=== PATIENT | female | born 1960 | race Caucasian/White ===

== ENCOUNTER → 2018-02-14 | Outpatient (CLI) | payer OTHER ==
--- NOTE | 2018-02-14 08:58 | RAD ---
DATE: 02/14/2018 EXAM: DIGITAL SCREEN BILAT W/CAD HISTORY: Routine screening. History of benign left breast biopsy 8 years ago. COMPARISON: None This study was interpreted with the benefit of Computerized Aided Detection (CAD). FINDINGS: Breast Density: DENSE The breast Parenchyma is dense, which could reduce the sensitivity of mammography. Breast parenchyma level density D.. The skin and nipples are within normal limits. Left upper outer breast biopsy clip noted. Benign-appearing scattered bilateral calcifications . There is a round mass measuring 4.2 mm in the outer right breast approximately 7.1 cm from the nipple best seen on cc view. IMPRESSION: Right outer breast mass most likely a cyst. However, ultrasound confirmation recommended. BI-RADS CATEGORY: 0 INCOMPLETE: NEED ADDITIONAL IMAGING EVAULATION AND/OR PRIOR MAMMOGRAMS FOR COMPARISON. Ultrasound of the right outer breast recommended. RECOMMENDED FOLLOW-UP: ADD ADDITIONAL IMAGING. Ultrasound of the right outer breast. PQRS compliance statement: Patient information was entered into a reminder system with a target due date for the next mammogram. Mammography is a sensitive method for finding small breast cancers, but it does not detect them all and is not a substitute for careful clinical examination. A negative mammogram does not negate a clinically suspicious finding and should not result in delay in biopsying a clinically suspicious abnormality. "Our facility is accredited by the [employer] Mammography [employer]."
== END | disposition home or self-care (01) ==
LOC: MAMMO 07:54
PROVIDERS: ATTEND Nurse Practitioner
DX: Z12.31 Encounter for screening mammogram for malignant neoplasm of breast (principal); N63.10 Unspecified lump in the right breast, unspecified quadrant
CPT/HCPCS: 77067

== ENCOUNTER → 2018-06-17 | Outpatient (CLI) | payer OTHER ==
--- NOTE | 2018-06-17 13:03 | RAD ---
Right breast ultrasound, 02/14/2018: History: Abnormal mammogram The recent screening mammograms demonstrated a small nodule in the posterolateral right breast on the cc view. Correlation with the oblique view suggests that it lies at approximately 9:00 location. Its visible margins are fairly smooth. Today's targeted ultrasound exam of the lateral right breast does not demonstrate this nodule. IMPRESSION: No sonographic correlate could be identified for the mammographically identified small right lateral breast nodule. Follow-up 3-D mammography in 4-6 months is suggested to evaluate stability. Breast MR would be a reasonable alternative. BI-RADS 3-probably benign findings
== END | disposition home or self-care (01) ==
LOC: US 11:55
PROVIDERS: ATTEND Family Medicine
DX: R92.8 Other abnormal and inconclusive findings on diagnostic imaging of breast (principal)
CPT/HCPCS: 76641

== ENCOUNTER → 2019-02-13 | Outpatient (CLI) | payer OTHER ==
--- NOTE | 2019-02-13 14:45 | RAD ---
DATE: 02/13/2019 EXAM: DIGITAL DIAGNOSTIC RT HISTORY: Follow-up breast nodule COMPARISON: 02/14/2018 This study was interpreted with the benefit of Computerized Aided Detection (CAD). Breast Density: DENSE The breast parenchyma is dense, which could reduce the sensitivity of mammography. Breast parenchyma level density D. FINDINGS: The right breast is extremely dense. There is a persistent small 4-5 mm nodule in the posterolateral aspect of the right breast, currently only seen on the cc view. It has shown no definite change in size. This nodule could not be delineated on the previous ultrasound exam. Considering the extreme density of this patient's breasts, additional imaging consisting of 3-D mammography or breast MRI is again suggested for optimal localization and characterization. No new right breast density is seen. Scattered microcalcifications are again noted with the distribution suggests a benign etiology. IMPRESSION: Persistent right breast nodule as described above. 3-D mammography is suggested for further evaluation. It has been a year since the patient's previous bilateral mammography and therefore the patient is also due for left mammography. BI-RADS CATEGORY: 0 INCOMPLETE: NEEDS ADDITIONAL IMAGING EVALUATION AND/OR PRIOR MAMMOGRAMS FOR COMPARISON. RECOMMENDED FOLLOW-UP: ADD ADDITIONAL IMAGING PQRS compliance statement: Patient information was entered into a reminder system with a target due date for the next mammogram. Mammography is a sensitive method for finding small breast cancers, but it does not detect them all and is not a substitute for careful clinical examination. A negative mammogram does not negate a clinically suspicious finding and should not result in delay in biopsying a clinically suspicious abnormality. "Our facility is accredited by the [employer] Mammography [employer]."
== END | disposition home or self-care (01) ==
LOC: MAMMO 13:58
PROVIDERS: ATTEND Nurse Practitioner Family
DX: N63.10 Unspecified lump in the right breast, unspecified quadrant (principal)
CPT/HCPCS: 77065

== ENCOUNTER 2020-08-06 11:12 | Emergency (ER) | payer SELFPAY ==
[~2020-08-06] VITALS: Ht 167.6 cm; Wt 52.3 kg
[2020-08-06] MEDS ORDERED: CLIN300C8 PO (11:45)
[2020-08-06] MEDS ORDERED: TRAM50TA PO (11:45)
--- NOTE | 2020-08-06 11:46 | PHYS DOC ---
Past History Past Medical History: Diabetes Additional Past Medical Histor: Hep-C Past Surgical History: , Tubal ligation Additional Past Surgical Histo: cyst removal Smoking: Non-smoker Alcohol Use: Occasionally Drug Use: None Adult General Chief Complaint Chief Complaint: LOWER EXT PAIN HPI HPI Patient is a 60-year-old female who presents to the emergency room complaining of foot redness and swelling. She states that this started yesterday. It is progressively gotten worse. She initially noticed a little bit of redness and swelling and now she is having pain with walking due to the swelling. She denies any streaking, fever, nausea, vomiting, trauma. She did break her calcaneus in that foot several months ago but it has been healing well. Review of Systems Review of Systems General: Denies fever, chills, sweats, fatigue Eyes: Denies drainage, blurred vision, eye redness HENT: Denies rhinorrhea, sore throat, earache Respiratory: Denies cough, shortness of breath, wheezing Cardiac: Denies edema, palpitations, chest pain GI: Denies abdominal pain, Nausea, vomiting MSK: Denies back pain, neck pain Skin: Denies jaundice. Reports rash Neuro: Denies headache, dizziness Psychiatric: Denies SI/HI Allergies Allergies Allergies Coded Allergies Type Severity Reaction Last Updated Verified No Known Drug Allergies 11/01/13 No Physical Exam Physical Exam General: Awake, alert, NAD. Well Nourished, well hydrated. Cooperative HEENT: Atraumatic, EOMI, PERRL, airway patent, moist oral mucosa Neck: Supple, trachea midline Respiratory: CTA bilaterally, normal effort, no wheezing/crackles CV: RRR, no murmur, cap refill <2 GI: Soft, nondistended, nontender, no masses MSK: No obvious deformities Skin: Warm, dry. Right foot: Lateral area of erythema that measures 6x8 cm with swelling and warmth. No blisters or drainage Neuro: A&O x3, speech NL, sensory and motor grossly intact, no focal deficits Psych: Normal affect, normal mood, not suicidal or homicidal Current Patient Data Vital Signs Vital Signs Date Time Temp Pulse Resp B/P (MAP) Pulse Ox O2 Delivery O2 Flow Rate FiO2 08/06/20 11:22 97.8 102 16 133/53 (79) 96 Room Air EKG EKG [] Radiology/Procedures Radiology/Procedures [] Course & Med Decision Making Course & Med Decision Making Pertinent Labs and Imaging studies reviewed. (See chart for details) Patient is a 60-year-old female who presents to the emergency room with pain and swelling in her foot. Patient appears to have cellulitis at this time. We will place her on clindamycin. I have discussed with her that she needs to return to the emergency room if she develops fevers, is unable to walk, develops blisters, or the infection gets worse. Patient's test results and vitals while in the ED were fully reviewed and discussed with the patient. Patient is stable and at this time does not need admission to the hospital. We have discussed strict return precautions and the importance of following up with their Primary Care Physician. Patient stated understanding and was given an opportunity to ask any questions. Patient is in agreement with plan. Dragon Disclaimer Dragon Disclaimer This electronic medical record was generated, in whole or in part, using a voice recognition dictation system. Departure Departure: Impression: Primary Impression: Cellulitis of foot Disposition: 01 HOME/RESIDENCE PRIOR TO ADM Condition: STABLE Referrals: TRACEY MITCHELL (PCP) Patient Instructions: Cellulitis Scripts Tramadol Hcl (TRAMADOL HCL) 50 Mg Tablet 50 MG PO PRN Q6HRS PRN for PAIN, #5 TAB Prov: KIKA CUELLAR MD 08/06/20 Clindamycin Hcl (CLINDAMYCIN HCL) 300 Mg Capsule 1 CAP PO TID for infx, #21 CAP Prov: KIKA CUELLAR MD 08/06/20 Justification of Admission: Justification of Admission: Justification of Admission Dx: N/A KIKA CUELLAR MD Aug 06, 2020 11:46
[2020-08-06 11:53] VITALS: BP 111/52
== END 2020-08-06 11:54 | disposition home or self-care (01) ==
LOC: ER 11:12
DX: L03.115 Cellulitis of right lower limb (principal); E11.9 Type 2 diabetes mellitus without complications
CPT/HCPCS: 99283

== ENCOUNTER → 2020-08-16 | Outpatient (CLI) | payer OTHER ==
[2020-08-06 11:53] VITALS: BP 111/52
[~2020-08-16] MED LIST: CLIN300C8 PO; TRAM50TA PO
--- NOTE | 2020-08-16 16:47 | RAD ---
Three-view left ankle study Clinical indications: History of calcaneus fracture. FINDINGS: There is flattening of Boehler's angle. This is due to a fracture of the body of the calcaneus. Cortical disruption is seen involving the posterior aspect and plantar aspect of the calcaneus. However, no radiolucent fracture line is seen. Therefore, the fracture may be healed. There is no previous study available for comparison. No lytic process is evident. The mortise ankle joint appears intact. Small accessory ossification center of the medial malleolus is seen which is well corticated. IMPRESSION: Fracture of the calcaneus which appears healed. Electronically signed by: Enrrique Nesbitt MD (08/16/2020 4:44 PM) [id number]
== END | disposition home or self-care (01) ==
LOC: DXRAD 15:14
PROVIDERS: ATTEND Nurse Practitioner Family
DX: S92.002A Unspecified fracture of left calcaneus, initial encounter for closed fracture (principal); X58.XXXA Exposure to other specified factors, initial encounter; Y93.89 Activity, other specified; Y92.89 Other specified places as the place of occurrence of the external cause; Y99.8 Other external cause status
CPT/HCPCS: 73610

== ENCOUNTER → 2021-02-06 | Outpatient (CLI) | payer OTHER ==
[~2021-02-06] MED LIST changes: -CLIN300C8 PO; +CLIN300C9 PO
--- NOTE | 2021-02-06 16:28 | RAD ---
Examination: Bilateral digital diagnostic mammogram INDICATION: 61-year-old woman due for mammographic screening presents for follow-up of a nodule in th e lateral posterior right breast seen on prior diagnostic breast imaging. She is overdue for follow-u p. There is a history of 2 benign left breast biopsies. COMPARISON: Right diagnostic mammogram of 02/13/2019, bilateral screening mammogram of 02/14/2018, and limited right breast ultrasound of 06/17/2018. TECHNIQUE: CC and MLO views of both breasts were obtained with 2-D technique and reviewed with comput er-aided detection. FINDINGS: The breasts are extremely dense. The previously recalled from screening nodule in the lateral posterior right breast is no longer appa rent in follow-up. There has been a slight interval decrease in overall breast tissue density. The left breast shows scattered punctate calcifications in the posterior upper outer quadrant left br east with a biopsy marker present near the skin surface. IMPRESSION: Benign findings on bilateral digital diagnostic mammogram. No evidence of malignancy. Recommend routine screening next due in one year in the absence of any clinical concerns. BI-RADS Category 2 Benign findings Patient entered into a reminder system with targeted due date for next mammogram. Electronically signed by: Ann Sparrow MD (02/06/2021 4:25 PM) [id number]
== END ==
LOC: MAMMO 13:52
PROVIDERS: ATTEND Nurse Practitioner Family
DX: R92.1 Mammographic calcification found on diagnostic imaging of breast (principal)
CPT/HCPCS: 77066

== ENCOUNTER → 2021-02-07 | Outpatient (CLI) | payer OTHER ==
--- NOTE | 2021-02-07 17:13 | RAD ---
Examination: CT chest without contrast HISTORY: History of smoking, history of COPD COMPARISON: None TECHNIQUE: Axial CT images of chest were performed without contrast. Coronal and sagittal reformats a re performed Exposure: One or more of the following individualized dose reduction techniques were utilized for thi s examination: 1. Automated exposure control 2. Adjustment of the mA and/or kV according to patient size 3. Use of iterative reconstruction technique FINDINGS: The visualized thyroid gland grossly appears unremarkable. The central airways are patent. Heart size grossly appears unremarkable. Aortic atherosclerosis. No radiologically significant mediastinal lymphadenopathy. Mild bilateral lung emphysematous changes. Scattered calcified granulomas identified in the bilateral lungs. Mild airspace opacities identified in the right middle lobe, left lingula and left lower lobe of the lung likely atelectasis or infiltrate. The visualized liver, spleen, adrenals grossly appears unremar kable. Mild degenerative changes thoracic spine. Impression: 1. Mild airspace opacities identified in the right middle lobe, left lingula and left lower lobe of the lung likely atelectasis or infiltrate. Follow-up to resolution. 2. Mild bilateral lung emphysematous changes. Electronically signed by: Shaheed Stacy MD (02/07/2021 5:10 PM) [id number]
== END ==
LOC: CT 11:26
PROVIDERS: ATTEND Nurse Practitioner Family
DX: J43.9 Emphysema, unspecified (principal); Z72.0 Tobacco use
CPT/HCPCS: 71250

== ENCOUNTER 2021-09-22 10:08 | Emergency (ER) | payer SELFPAY ==
[~2021-09-22] VITALS: Ht 167.6 cm; Wt 52.3 kg
[~2021-09-22 10:08] MED LIST changes: +CLIN-95 PO; -CLIN300C9 PO
[2021-09-22 10:19] VITALS: BP 107/35
[2021-09-22] MEDS ORDERED: CEPHALEXIN 250 MG CAPSULE PO ONE (10:30)
--- NOTE | 2021-09-22 10:35 | PHYS DOC ---
Past History Past Medical History: Diabetes Additional Past Medical Histor: Hep-C Past Surgical History: , Tubal ligation Additional Past Surgical Histo: cyst removal Smoking: Non-smoker Alcohol Use: Occasionally Drug Use: None General Adult EDM: Chief Complaint: FOOT INJURY PAIN HPI: HPI: This 61-year-old female who presents to the emergency department for right foot pain, swelling, redness and warmth. Patient reports that she attempted to hit a vein in her foot while injecting meth and she noticed the symptoms that started yesterday. She rates her pain 3 out of 10. She states it is worse with bearing weight. Patient denies any decreased sensation, fevers, nausea or vomiting, decreased range of motion. Review of Systems: Review of Systems: Constitutional: See HPI GI: See HPI Musculoskeletal: See HPI Integument: See HPI Neurologic: See HPI Allergies: Allergies: Allergies Coded Allergies Type Severity Reaction Last Updated Verified No Known Drug Allergies 11/01/13 No Physical Exam: PE: Constitutional: Well developed, well nourished, no acute distress, non-toxic appearance. [] HENT: Normocephalic, atraumatic, bilateral external ears normal, oropharynx moist, no oral exudates, nose normal. [] Eyes: PERRL, EOMI, conjunctiva normal, no discharge. [] Neck: Normal range of motion, no tenderness, supple, no stridor. [] Cardiovascular:Heart rate regular rhythm, no murmur [] Lungs & Thorax: Bilateral breath sounds clear to auscultation [] Abdomen: Bowel sounds normal, soft, no tenderness, no masses, no pulsatile tracy s. [] Skin: Warm, dry, no erythema, no rash. [] Back: Normal range of motion Extremities: No tenderness, no cyanosis, no clubbing, ROM intact, left foot: Swelling, redness, warmth noted to right foot, neuro intact, range of motion intact, no open wounds or lesions Neurologic: Alert and oriented X 3, normal motor function, normal sensory function, no focal deficits noted. [] Psychologic: Affect normal, judgement normal, mood normal. [] Current Patient Data: Labs: Laboratory Tests Test 09/22/21 10:50 09/22/21 11:45 White Blood Count 8.8 x10^3/uL Red Blood Count 4.52 x10^6/uL Hemoglobin 13.3 g/dL Hematocrit 40.7 % Mean Corpuscular Volume 90 fL Mean Corpuscular Hemoglobin 30 pg Mean Corpuscular Hemoglobin Concent 33 g/dL Red Cell Distribution Width 14.5 % Platelet Count 282 x10^3/uL Neutrophils (%) (Auto) 76 % Lymphocytes (%) (Auto) 15 % Monocytes (%) (Auto) 7 % Eosinophils (%) (Auto) 3 % Basophils (%) (Auto) 0 % Neutrophils # (Auto) 6.7 x10^3uL Lymphocytes # (Auto) 1.3 x10^3/uL Monocytes # (Auto) 0.6 x10^3/uL Eosinophils # (Auto) 0.2 x10^3/uL Basophils # (Auto) 0.0 x10^3/uL Sodium Level 135 mmol/L Potassium Level 3.7 mmol/L Chloride Level 98 mmol/L Carbon Dioxide Level 29 mmol/L Anion Gap 8 Blood Urea Nitrogen 10 mg/dL Creatinine 0.6 mg/dL Estimated GFR (Cockcroft-Gault) 101.6 Glucose Level 121 mg/dL Calcium Level 8.9 mg/dL Current Medications Medications (Trade) Dose Ordered Sig/Vipul Route PRN Reason Start Time Stop Time Status Last Admin Dose Admin Cephalexin HCl (Keflex) 500 mg 1X ONCE PO 09/22/21 10:30 09/22/21 10:33 DC 09/22/21 10:57 Acetaminophen/ Hydrocodone Bitart (Lortab 5/325) 1 tab 1X ONCE PO 09/22/21 11:30 09/22/21 11:31 DC 09/22/21 11:35 Vital Signs: Vital Signs Date Time Temp Pulse Resp B/P (MAP) Pulse Ox O2 Delivery O2 Flow Rate FiO2 09/22/21 10:19 98.3 96 16 107/35 (59) 98 Room Air EKG: EKG: [] Radiology/Procedures: Radiology/Procedures: [] Heart Score: C/O Chest Pain: N/A Risk Factors: Risk Factors: DM, Current or recent (<one month) smoker, HTN, HLP, family history of CAD, obesity. Risk Scores: Score 0 - 3: 2.5% MACE over next 6 weeks - Discharge Home Score 4 - 6: 20.3% MACE over next 6 weeks - Admit for Clinical Observation Score 7 - 10: 72.7% MACE over next 6 weeks - Early Invasive Strategies Course & Med Decision Making: Course & Med Decision Making Pertinent Labs and Imaging studies reviewed. (See chart for details) Patient presents to the emergency department for right foot pain, swelling, redness and warmth that started yesterday. Patient reports that she injects meth into her veins. Blood work performed in the emergency department to rule out sepsis. Lab work unremarkable. VSS, afebrile in ER. Patient given a dose of antibiotic in the emergency department and she will be discharged home with a n antibiotic prescription. Advised to follow-up with her primary care provider. She can take Tylenol and/or ibuprofen for her pain. Educated on elevation of extremity for swelling. Advised to discontinue methamphetamine use. I discussed with patient all findings and diagnostic testing as well as the need to follow-up with PCP for further evaluation and treatment or return to the ER if any new or worsening symptoms. Strict return precautions were also discussed at length. Patient voiced understanding and agreement with the plan. Patient is hemodynamically stable at the time of disposition. Jae Disclaimer: Jae Disclaimer: This electronic medical record was generated, in whole or in part, using a voice recognition dictation system. Departure Departure: Impression: Primary Impression: Cellulitis of foot Disposition: 01 HOME / SELF CARE / HOMELESS Condition: GOOD Referrals: PCP,NO (PCP) Patient Instructions: Cellulitis Additional Instructions: You were seen in the emergency department for right foot swelling, pain, redness and warmth. It appears that you have cellulitis of your right foot. Your blood work was reassuring and does not show a systemic infection at this time. You are being discharged home with an antibiotic, you were given your first dose in the emergency department. Make sure that you start and finish it completely. You can take Tylenol and/or ibuprofen for your pain at home. Ice and elevation of your foot may help with swelling. Discontinue methamphetamine use. Follow-up with your primary care provider tomorrow regarding your emergency department visit. Return to the ER if you develop worsening of your pain or swelling, decreased range of motion, decreased sensation, high fevers refractory to treatment, intractable nausea or vomiting. Scripts Cephalexin (CEPHALEXIN) 500 Mg Tablet 1 TAB PO QID for infection for 7 Days, #28 TAB 0 Refills Prov: LUDA BOSTON APRN 09/22/21 LUDA BOSTON APRN Sep 22, 2021 10:35
[2021-09-22 11:16] LABS: BASO % 0 % (0-3); EOS # 0.2 x10^3/uL (0.0-0.7); EOS % 3 % (0-3); HEMATOCRIT 40.7 % (36.0-47.0); HEMOGLOBIN 13.3 g/dL (12.0-15.5); LYMPH # 1.3 x10^3/uL (1.0-4.8); LYMPH % 15 % (24-48); MEAN CORPUSCULAR HEMOGLOBIN 30 pg (25-35); MEAN CORPUSCULAR HGB CONC 33 g/dL (31-37); MEAN CORPUSCULAR VOLUME 90 fL (79-100); MONO # 0.6 x10^3/uL (0.0-1.1); MONO % 7 % (0-9); NEUT # 6.7 x10^3uL (1.8-7.7); NEUT % 76 % (31-73); PLATELET COUNT 282 x10^3/uL (140-400); RED BLOOD COUNT 4.52 x10^6/uL (3.50-5.40); RED CELL DISTRIBUTION WIDTH 14.5 % (11.5-14.5); WHITE BLOOD COUNT 8.8 x10^3/uL (4.0-11.0)
[2021-09-22] MEDS ORDERED: HYDROcodone/APAP 5/325MG 1 TAB TABLET PO ONE (11:30)
[2021-09-22 12:37] LABS: CALCIUM 8.9 mg/dL (8.5-10.1); CREATININE 0.6 mg/dL (0.6-1.0); GFR 101.6; POTASSIUM 3.7 mmol/L (3.5-5.1)
[2021-09-22] MEDS ORDERED: CEPH500T PO (12:46)
== END 2021-09-22 12:56 | disposition home or self-care (01) ==
LOC: ER 10:08
DX: L03.115 Cellulitis of right lower limb (principal); E11.9 Type 2 diabetes mellitus without complications
CPT/HCPCS: 36415; 80048; 85025; 99283

== ENCOUNTER 2022-01-03 08:58 | Emergency (ER) | payer BC ==
[~2022-01-03] VITALS: Ht 167.6 cm; Wt 52.3 kg
[~2022-01-03 08:58] MED LIST changes: +CEPH500T PO
[2022-01-03 09:08] VITALS: BP 143/52
[2022-01-03] MEDS ORDERED: SULF1TAB24 PO (09:24)
--- NOTE | 2022-01-03 09:28 | PHYS DOC ---
Past History Past Medical History: Diabetes Additional Past Medical Histor: Hep-C Past Surgical History: , Tubal ligation, Other Additional Past Surgical Histo: cyst removal Smoking: Non-smoker Alcohol Use: Rarely Drug Use: None Adult General Chief Complaint Chief Complaint: CELLULITIS HPI HPI Patient is a 61-year-old female presenting for left forearm skin issues. She has history of IV drug use with last use reported 1 week ago. Nonetheless, she woke up yesterday with development of redness and focal pain to left forearm area at site of recent IV drug injection. Reports pain, swelling in redness increased over past 24 hours prompting her to come in for evaluation today as she fears this is consistent with prior episodes of cellulitis. She has not been on antibiotics since September. No other diagnosed medical issues. She is interested in establishing with a local primary care physician for continuity of care in outpatient setting and requesting resources on this today Review of Systems Review of Systems Fourteen body systems of review of systems have been reviewed. See HPI for pertinent positives and negative responses, other segal all other systems are negative, non-pertinent or non-contributory Allergies Allergies Allergies Coded Allergies Type Severity Reaction Last Updated Verified No Known Drug Allergies 11/01/13 No Physical Exam Physical Exam Constitutional: Well developed, well nourished, no acute distress, non-toxic appearance. HENT: Normocephalic, atraumatic, bilateral external ears normal, oropharynx moist, no oral exudates, nose normal. Eyes: PERRLA, EOMI, conjunctiva normal, no discharge. Neck: Normal range of motion, no tenderness, supple, no stridor. Cardiovascular: Heart rate regular, sinus rhythm, no murmurs rubs or gallops Lungs & Thorax: Bilateral breath sounds clear to auscultation Abdomen: Bowel sounds normal, soft, no tenderness, no masses, no pulsatile masses. Nonsurgical abdomen, no peritoneal signs Skin: Warm, dry, no rash. Patient has obvious cellulitis present to ventral portion of left forearm near antecubital area with no palpable subcutaneous fluctuance or crepitus, there is some mild soft tissue swelling present without any purulent drainage Back: No tenderness, no CVA tenderness. Extremities: No tenderness, no cyanosis, no clubbing, ROM intact, no edema. Neurologic: Alert and oriented X 3, grossly normal motor & sensory function, no focal deficits noted. Psychologic: Anxious affect and mood Current Patient Data Vital Signs Vital Signs Date Time Temp Pulse Resp B/P (MAP) Pulse Ox O2 Delivery O2 Flow Rate FiO2 01/03/22 09:08 100.1 101 20 143/52 (82) 95 Room Air EKG EKG [] Radiology/Procedures Radiology/Procedures [] Heart Score C/O Chest Pain: No Risk Factors: Risk Factors: DM, Current or recent (<one month) smoker, HTN, HLP, family history of CAD, obesity. Risk Scores: Risk Factors: DM, Current or recent (<one month) smoker, HTN, HLP, family history of CAD, obesity. Course & Med Decision Making Course & Med Decision Making ABCs unremarkable. I disclosed entirety of ER findings and discussed most likely diagnosis of left forearm cellulitis and an IV drug user. Other diagnoses were discussed with patient such as abscess and thrombosis but all deemed less likely causes of patient's presentation. Plan of care discussed at length with need for close outpatient follow-up to review today's ER visit stressed. Strict return precautions were also discussed at length with good understanding verbalized by patient. Patient deferred further work-up requesting antibiotics only. Patient also requesting local resources regarding primary care physicians whom she can call to set up an appointment with, this was given on ER departure. Patient voiced understanding and agreement with the plan. Patient knows to come back for repeat evaluation if concerning signs or symptoms present prior to outpatient follow-up. Hemodynamically stable, ambulatory and well- appearing at time of disposition. Dragon Disclaimer Dragon Disclaimer This electronic medical record was generated, in whole or in part, using a voice recognition dictation system. Departure Departure: Impression: Primary Impression: Cellulitis of left forearm Disposition: HOME / SELF CARE / HOMELESS Condition: STABLE Referrals: PCP,NO (PCP) Patient Instructions: Cellulitis, Sulfamethoxazole; Trimethoprim, SMX-TMP tablets Additional Instructions: You were seen for an infection called cellulitis. You should jose de jesus the area of redness when you get home. If your redness spreads past the marked area at 24 hours you should have it evaluated again. You do not have an abscess right now but you could develop one. If so you will need to have it drained. You should return to the ED immediately if you develop worsening pain, fever, swelling, redness, drainage, any sign of abscess, or any other new or concerning symptoms. Take the entire course of antibiotics as prescribed. Scripts Sulfamethoxazole/Trimethoprim (BACTRIM DS TABLET) 1 Each Tablet 1 TAB PO BID for cellulitis for 10 Days, #20 TAB 0 Refills Prov: JONO BARTON DO 01/03/22 JONO BARTON DO Jan 03, 2022 09:27
[2022-01-03] MEDS ORDERED: SMZ/TMP 800/160MG TABLET. PO ONE (09:30)
== END 2022-01-03 09:38 | disposition home or self-care (01) ==
LOC: ER 08:58
DX: L03.114 Cellulitis of left upper limb (principal); E11.9 Type 2 diabetes mellitus without complications
CPT/HCPCS: 99283

== ENCOUNTER 2022-01-26 19:32 | Emergency (ER) | payer BC ==
[~2022-01-26] VITALS: Ht 167.6 cm; Wt 52.3 kg
[2022-01-26 19:32] VITALS: BP 126/96
[~2022-01-26 19:32] MED LIST changes: +SULF1TAB24 PO
[2022-01-26] MEDS ORDERED: CLIN-95 PO (20:01)
--- NOTE | 2022-01-26 20:01 | PHYS DOC ---
Past History Past Medical History: Diabetes Additional Past Medical Histor: Hep-C Past Surgical History: , Tubal ligation, Other Additional Past Surgical Histo: cyst removal Smoking: Non-smoker Alcohol Use: Rarely Drug Use: Methamphetamine General Adult EDM: Chief Complaint: SKIN PROBLEM HPI: HPI: Patient is a 62-year-old female who presents today with redness to her left lower leg. Patient states the redness started about 3 to 4 days ago, and has just gotten more red and swollen and she is concerned that she might have cellulitis in her leg. Patient does not recall a bite or trauma to that area, she denies fever and chills at this time, she has a negative Homans' sign. Patient does have a history of cellulitis in the past and was here approximately 1 month ago and said she continue those antibiotics until they were gone and she got rid of her previous infection. Review of Systems: Review of Systems: Constitutional: Denies fever or chills Eyes: Denies change in visual acuity HENT: Denies nasal congestion or sore throat Respiratory: Denies cough or shortness of breath Cardiovascular: Denies chest pain or edema GI: Denies abdominal pain, nausea, vomiting, bloody stools or diarrhea : Denies dysuria Musculoskeletal: Denies back pain or joint pain Integument: Redness, warmth, and swelling to the left lower leg Neurologic: Denies headache, focal weakness or sensory changes Endocrine: Denies polyuria or polydipsia Lymphatic: Denies swollen glands Psychiatric: Denies depression or anxiety Allergies: Allergies: Allergies Coded Allergies Type Severity Reaction Last Updated Verified No Known Drug Allergies 11/01/13 No Physical Exam: PE: Constitutional: Well developed, well nourished, no acute distress, non-toxic appearance. [] HENT: Normocephalic, atraumatic, bilateral external ears normal, oropharynx moist, no oral exudates, nose normal. [] Eyes: PERRLA, EOMI, conjunctiva normal, no discharge. [] Neck: Normal range of motion, no tenderness, supple, no stridor. [] Cardiovascular:Heart rate regular rhythm, no murmur [] Lungs & Thorax: Bilateral breath sounds clear to auscultation [] Abdomen: Bowel sounds normal, soft, no tenderness, no masses, no pulsatile masses. [] Skin: Left lower leg is reddened and warm to touch, area is approximately 13 cm x 7 cm warm, dry, [] Back: No tenderness, no CVA tenderness. [] Extremities: Left lower leg no Homans' sign, sensory intact distal to the reddened area, pedal pulse is 2+ Neurologic: Alert and oriented X 3, normal motor function, normal sensory function, no focal deficits noted. [] Psychologic: Affect normal, judgement normal, mood normal. [] Current Patient Data: Vital Signs: Vital Signs Date Time Temp Pulse Resp B/P (MAP) Pulse Ox O2 Delivery O2 Flow Rate FiO2 01/26/22 19:32 98.2 95 18 126/96 (106) 94 Room Air EKG: EKG: [] Radiology/Procedures: Radiology/Procedures: [] Heart Score: C/O Chest Pain: No Risk Factors: Risk Factors: DM, Current or recent (<one month) smoker, HTN, HLP, family history of CAD, obesity. Risk Scores: Score 0 - 3: 2.5% MACE over next 6 weeks - Discharge Home Score 4 - 6: 20.3% MACE over next 6 weeks - Admit for Clinical Observation Score 7 - 10: 72.7% MACE over next 6 weeks - Early Invasive Strategies Course & Med Decision Making: Course & Med Decision Making Pertinent Labs and Imaging studies reviewed. (See chart for details) Patient denies fever or chills and appears nontoxic in appearance, we will treat her with clindamycin antibiotics, did inform her that if she continues to have redness or develops a fever while taking the antibiotic she should follow-up or return here to the emergency department for further evaluation. Patient verbalizes understanding of this and agreeable to the plan of care. Jae Disclaimer: Jae Disclaimer: This electronic medical record was generated, in whole or in part, using a voice recognition dictation system. Departure Departure: Impression: Primary Impression: Cellulitis Qualified Codes: L03.116 - Cellulitis of left lower limb Disposition: HOME / SELF CARE / HOMELESS Condition: STABLE Referrals: PCP,NO (PCP) Patient Instructions: Cellulitis Additional Instructions: Clindamycin 300 mg 3 times daily for 10 full days Return to the emergency department if your swelling and redness enlarges, or you develop a fever while taking your antibiotics Follow-up with your primary care physician or one of the physicians listed on the community resource list for further management of the cellulitis or any other other medical problems. Scripts Clindamycin Hcl (CLINDAMYCIN HCL) 300 Mg Capsule 1 CAP PO TID for cellulitis, #30 CAP Prov: MONICA LANGSTON [employer] 01/26/22 MONICA LANGSTON [employer] Jan 26, 2022 20:01
[2022-01-26] MEDS ORDERED: CLINDAMYCIN HCL 150 MG CAPSULE PO ONE (20:15)
== END 2022-01-26 20:10 | disposition home or self-care (01) ==
LOC: ER 19:32
DX: L03.116 Cellulitis of left lower limb (principal); E11.9 Type 2 diabetes mellitus without complications
CPT/HCPCS: 99283